=== PATIENT | female | born 1995 | race Caucasian/White ===

== ENCOUNTER 2017-08-11 01:08 | Inpatient (IN) | payer BC ==
[2017-08-11] MEDS ORDERED: Nicotine Inhaler* 10 MG AMP INH PRN ×2 (07:11→11:28)
[2017-08-11] MEDS ORDERED: Acetaminophen TAB* 325 MG PO PRN (07:11)
[2017-08-11] MEDS ORDERED: Mouth Piece, Nicotine* 1 EACH CARTRIDGE INH PRN (07:11)
[2017-08-11] MEDS ORDERED: Al Hydrox/Mg Hydrox/Simet LIQ* 30 ML UDC PO PRN (07:11)
[2017-08-11] MEDS: Vitamin THERAPEUTIC TAB PO SCH (11:39)
[2017-08-11 12:55] LABS: Hematocrit 36 % (35-47); Hemoglobin 11.2 g/dl (12.0-16.0); Mean Corpuscular HGB Conc 32 g/dl (31-36); Mean Corpuscular Hemoglobin 23 pg (27-31); Mean Corpuscular Volume 73 fL (80-97); Mean Platelet Volume 9 um3 (7.4-10.4); Red Blood Count 4.88 10^6/ul (4.0-5.4); Red Cell Distribution Width 17 % (10.5-15); White Blood Count 7.6 10^3/ul (3.5-10.8)
[2017-08-11 13:00] LABS: Add Diff/Slide Review? Slide Review Added; Comments Flag Yes
[2017-08-11 13:14] LABS: Acetaminophen < 15 mcg/mL; Alcohol < 10 mg/dL (<10); Salicylate < 2.50 mg/dL (<30)
[2017-08-11 13:17] LABS: ALT 8 U/L (7-52); AST 12 U/L (13-39); Albumin 4.5 g/dL (3.2-5.2); Alkaline Phosphatase 75 U/L (34-104); Anion Gap 6 mmol/L (2-11); BUN/Creatinine Ratio 11.6 (8-20); Blood Urea Nitrogen 8 mg/dL (6-24); CO2 Carbon Dioxide 27 mmol/L (22-32); Calcium 9.6 mg/dL (8.6-10.3); Chloride 107 mmol/L (101-111); EGFR African American 135.6 (>60); EGFR Non-African American 105.4 (>60); Globulin 3.1 g/dL (2-4); Glucose 90 mg/dL (70-100); Potassium 4.1 mmol/L (3.5-5.0); Sodium 140 mmol/L (133-145); Total Protein 7.6 g/dL (6.4-8.9)
[2017-08-11 14:36] LABS: Hypochromasia 2+; Microcytosis 3+
[2017-08-11] MEDS ORDERED: cloNIDine TAB* 0.1 MG PO PRN (14:36)
[2017-08-11 14:43] LABS: TSH (Thyroid Stimulating Horm) 2.51 mcIU/mL (0.34-5.60)
[2017-08-11] MEDS: Ferrous Sulfate TAB* 325 MG PO SCH (18:37)
[2017-08-11] MEDS: Mirtazapine TAB* 15 MG PO SCH (20:29)
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
[2017-08-12] MEDS ORDERED: Influenza VAC *QUAD* 2017-18* 0.5 ML SYRINGE IM ONE (09:00)
[2017-08-12 09:08] LABS: Urine Bilirubin Negative (Negative); Urine Glucose Negative (Negative); Urine Nitrite Negative (Negative)
[2017-08-12 09:23] LABS: Benzodiazepine Urine Screen None Detected (None Detect)
[2017-08-12] MEDS: Ferrous Sulfate TAB* 325 MG PO SCH (12:46)
[2017-08-12] MEDS: Vitamin THERAPEUTIC TAB PO SCH (12:50)
[2017-08-12] MEDS: Gabapentin CAP(*) 100 MG PO PRN (15:09)
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
[2017-08-12] MEDS: Mirtazapine TAB* 15 MG PO SCH (21:43)
[2017-08-13] MEDS: Vitamin THERAPEUTIC TAB PO SCH (09:00)
[2017-08-13] MEDS: Ferrous Sulfate TAB* 325 MG PO SCH (09:00)
[2017-08-13] MEDS: Gabapentin CAP(*) 100 MG PO PRN (14:35)
--- NOTE | 2017-08-13 17:09 | PN ---
Subjective - Subjective Service Type: 03392 Hosp care 15 min low complexity Subjective: Arvind reports that she is feeling much batter except for having night meres last night. Happy in the milieu. Waiting for he BF who is on his way from [place]. Denies suicidal or homicidal thoughts today. Appears to be tolerating her meds. Objective - Appearance Appearance: Thin Framed Dysmorphic Features: No Hygiene: Normal Grooming: Well Kept - Behavior Psychomotor Activities: Normal Exhibits Abnormal Movement: No - Attitude and Relatedness Attitude and Relatedness: Appropriate Eye Contact: Good - Speech Quality: Unpressured Latencies: Normal Quantity: Appropriate - Mood Patient's Decription of Mood: "Good" - Affect Observed Affect: Non-labile Affect Consistent with: Euthymia - Thought Process Patient's Thought Process: Coherent, Goal Directed Thought Content: No Passive Wish, No Suicidal Planning, No Homicidal Ideation, No Paranoid Ideation - Sensorium Experiencing Hallucinations: No, Sensorium is Clear Type of Hallucinations: Visual: No, Auditory: No, Command: No - Level of Consciousness Level of Consciousness: Alert Orientation: Yes Intact, Yes Orientated to Time, Yes Orientated to Place, Yes Orientated to Person - Impulse Control Impulse Control: Poor - Insight and Judgement Insight and Judgement: Fair - Group Participation Particating in Group Activities: Yes - Medication Management Medication Management Adherence: Yes Assessment - Assessment Merits Inpatient Hospitalization: For Immediate Safety, For Stabilization, Pending Safe DC Plan Inpatient DSM-IV Dx: PTSD; unspecified depressive d/o; consider cluster B traits Clinical Impression: Not in any crisis at this time and denies thoughts of self harm. Plan - Plan Treatment Plan: Name: ARVIND GILL Birthdate: 1995 [id number] Continued Medication Management: Continue Outpt Medication Medications: Current Medications Acetaminophen (Tylenol Tab*) 650 mg PO Q4H PRN PRN Reason: PAIN or TEMP > 101 F Al Hydrox/Mg Hydrox/Simethicone (Maalox Plus*) 30 ml PO Q4H PRN PRN Reason: INDIGESTION Device (Nicotine Mouth Piece*) 1 each INH .PRN PRN PRN Reason: . Last Admin: 08/12/17 14:39 Dose: 1 each Ferrous Sulfate (Ferrous Sulfate Tab*) 325 mg PO DAILY [facility] Last Admin: 08/13/17 09:00 Dose: 325 mg Gabapentin (Neurontin Cap(*)) 100 mg PO BID PRN PRN Reason: ANXIETY Last Admin: 08/13/17 14:35 Dose: 100 mg Mirtazapine (Remeron Tab*) 15 mg PO BEDTIME LAYNE Last Admin: 08/12/17 21:43 Dose: 15 mg Multivitamins (Theragran Tab*) 1 tab PO DAILY [facility] Last Admin: 08/13/17 09:00 Dose: 1 tab Nicotine (Nicotine Inhaler*) 10 mg INH Q2H PRN PRN Reason: CRAVING Last Admin: 08/12/17 14:40 Dose: 10 mg - Discharge Plan Discharge Plan: Outpatient Follow Up Outpatient Program: [facility]
[2017-08-13] MEDS: Mirtazapine TAB* 15 MG PO SCH (20:43)
[2017-08-14] MEDS: Vitamin THERAPEUTIC TAB PO SCH (10:09)
[2017-08-14] MEDS: Ferrous Sulfate TAB* 325 MG PO SCH (10:09)
[2017-08-14] MEDS: Gabapentin CAP(*) 100 MG PO PRN (13:25)
[2017-08-14] MEDS: Mirtazapine TAB* 15 MG PO SCH (22:04)
[2017-08-15 09:18] VITALS: BP 100/64
[2017-08-15] MEDS: Ferrous Sulfate TAB* 325 MG PO SCH (10:21)
[2017-08-15] MEDS: Vitamin THERAPEUTIC TAB PO SCH (10:21)
--- NOTE | 2017-08-15 20:24 | DS ---
Subjective - Subjective Service Types: [id number] [facility] Day Mgmt complex over 30 min Discharge Date: 08/15/17 Subjective: Patient reports improved mood and denies suicidal ideation. Per staff, she has been increasingly participating in programming and interactive with select staff and peers. She has been calm and in behavioral control and safe on all checks. Patient reports sleeping better with exception of nightmares. She is unsure if this is due to environment. Patient requests to be discharged and to return to [place] today. She has a second session with psychiatrist, Dr Payne, at 8am in the morning. Her father, Russell and her friend, Chicho have come from [place] to support her. Real Estate Closer and all meet today to discuss discharge planning. Patient inquires about borderline personality disorder, per her treatment plan. Given brief information on diagnosis and treatment. Also discussed the relationship with PTSD symptoms and encouraged patient to work with psychiatrist and/or therapist in regards to trauma. She states she is considering reaching out to [facility] as she has done so in the past. Real Estate Closer encouraged discontinuation of clonazepam due to vulnerability and deferred to discuss with Dr Payne any future psychiatric medication changes. Objective - Appearance Appearance: Well Developed/Nourished Dysmorphic Features: Yes Hygiene: Normal Grooming: Well Kept - Behavior Psychomotor Activities: Normal Exhibits Abnormal Movement: No - Attitude and Relatedness Attitude and Relatedness: Irritable Eye Contact: Good - Speech Quality: Unpressured Latencies: Normal Quantity: Terse - Mood Patient's Decription of Mood: "Great" - Affect Observed Affect: Constricted Affect Consistent with: Euthymia - Thought Process Patient's Thought Process: Coherent, Goal Directed, Circumstantial Thought Content: No Passive Wish, No Suicidal Planning, No Homicidal Ideation, No Paranoid Ideation - Sensorium Experiencing Hallucinations: No, Sensorium is Clear Type of Hallucinations: Visual: Yes, Auditory: Yes, Command: Yes - Level of Consciousness Level of Consciousness: Alert Orientation: Yes Intact, Yes Orientated to Time, Yes Orientated to Place, Yes Orientated to Person - Impulse Control Impulse Control: Intact - Insight and Judgement Insight and Judgement: Fair - Group Participation Particating in Group Activities: Yes - Medication Management Medication Management Adherence: Yes Treatment Course & Assessment Clinical Course & Impression: A. REASON FOR ADMISSION. Patient presented to ED with friends after ingesting remainder of bottle of klonopin. Patient had been drinking alcohol and had an argument via phone with her boyfriend. She has a history of parasuicidal behavior, including medical admission to [facility] in 2016. B. PSYCHIATRIC TX RENDERED: Pt was admited to [facility] under 939 status. Code status full. She was placed on 15 min checks for safety and encouraged to participate in therapeutic milieu and psychoeducational groups. Patient agreed to use of mirtazapine for mood, anxiety and sleep. Discussed use of clonodine for anxiety and PTSD symptoms. The next morning, pt was hypotensive and hypovolemic and clonidine was held. Symptoms resolved by lunch and patient was present in milieu. She agreed to trial gabapentin for anxiety. Patient was instructed to remain on unit to gain full benefit of admission and to identify more healthy reactions to emotional circumstances. SHe was irritable, defensive and minimized effectiveness of inpatient treatment. SHe was increasingly engaged in treatment. She was safe on all checks, decreased to 30min observation and allowed staff pass. Her father and a friend came to support her. DIscharge meeting done with underwriter mortgage loan, patient, friend and father. Discussed diagnoses, treatment and safety planning. Merits Inpatient Hospitalization: No Clear for Discharge: Adequate Clinical Respons, Acceptable Safety Profile, Low Utility of Inpt Care Inpatient DSM-IV Dx: PTSD; unspecified depressive d/o; consider cluster B traits Discharge Planning - Discharge Planning Discharge Plan: Outpatient Follow Up Recommendations for Continuing Care: Medication Management, Psychotherapy Medications: One week supply e-prescribed to [facility]: Ferrous Sulfate TAB* 325 mg PO DAILY #7 tab 08/15/17 [Rx] Gabapentin CAP(*) [Neurontin 100 mg CAP(*)] 100 mg PO BID PRN #14 cap 08/15/17 [ Rx] Mirtazapine TAB* [Remeron TAB*] 15 mg PO BEDTIME #7 tab 08/15/17 [Rx] Discharge Planning: Prescriptions provided for discharge [X] Yes [] No Follow up care details as per social work arrangements. Psychiatrist Dr Payne on 08/16/17 at 8:00am Patient response to discharge plan: [X] eager for discharge [X] agreeable with discharge plan [] ambivalent about discharge [] disagrees with discharge today
== END 2017-08-15 13:58 | disposition home or self-care (01) | DRG 755 ==
LOC: ED 01:08 → BSU 10:33
PROVIDERS: ADMIT Psychiatry & Neurology Psychiatry; ATTEND Psychiatry & Neurology Psychiatry
DX: F43.10 Post-traumatic stress disorder, unspecified (principal); D68.51 Activated protein C resistance; F32.9 Major depressive disorder, single episode, unspecified; F17.210 Nicotine dependence, cigarettes, uncomplicated; Z81.8 Family history of other mental and behavioral disorders; Z81.1 Family history of alcohol abuse and dependence; F10.10 Alcohol abuse, uncomplicated; F12.10 Cannabis abuse, uncomplicated
CPT/HCPCS: 36415; 80053; 80307; 80320; 80329; 81003; 84443; 85025; 87651; 90686; 99222; 99231; 99233; 99238; A9270-GY; G0480